=== PATIENT | female | born 1950 | race Caucasian/White ===

== ENCOUNTER → 2023-11-16 07:56 | Outpatient (REF) | payer OTHER, SELFPAY | LOC: RAD 07:56 | PROVIDERS: ATTENDING PHYSICIAN Nurse Practitioner Family | DX: R79.82 Elevated C-reactive protein (CRP) (principal); J18.9 Pneumonia, unspecified organism | CPT/HCPCS: 36415; 71046; 86140 ==

== ENCOUNTER → 2024-01-24 07:41 | Outpatient (REF) | payer OTHER, SELFPAY | LOC: RAD 07:41 | PROVIDERS: ATTENDING PHYSICIAN Internal Medicine | DX: R93.89 Abnormal findings on diagnostic imaging of other specified body structures (principal); J18.9 Pneumonia, unspecified organism | CPT/HCPCS: 71250 ==

== ENCOUNTER → 2024-02-29 10:49 | Outpatient (REF) | payer OTHER, SELFPAY | LOC: WDC 10:49 | PROVIDERS: ATTENDING PHYSICIAN Internal Medicine | DX: Z12.31 Encounter for screening mammogram for malignant neoplasm of breast (principal) | CPT/HCPCS: 77063; 77067 ==

== ENCOUNTER → 2024-06-12 07:42 | Outpatient (REF) | payer OTHER, SELFPAY ==
[2024-06-12 09:22] LABS: % Basophils 1.1 % (0-2); % Eosinophils 5.7 % (0-6); % Immature Granulocytes 0.3 % (0-0.5); % Lymphocytes 24.9 % (20.5-51.1); % Monocytes 8.8 % (1.7-9.3); % Neutrophils 59.2 % (42.2-75.2); Absolute Basophils 0.1 10^3/uL (0-0.2); Absolute Eosinophils 0.4 10^3/uL (0-0.7); Absolute Lymphocytes 1.5 10^3/uL (1.2-3.4); Absolute Monocytes 0.5 10^3/uL (0.1-0.6); Absolute Neutrophils 3.6 10^3/uL (1.4-6.5); Hematocrit 42.7 % (37.0-47.0); Hemoglobin 13.7 g/dL (12.0-16.0); Mean Corp Hgb Conc. 32.1 g/dL (33.0-37.0); Mean Corpuscular Hgb 28.1 pg (27.0-31.0); Mean Corpuscular Volume 87.7 fL (81.0-99.0); Mean Platelet Volume 10.7 fL (7.4-10.4); Nucleated Red Blood Cells % 0 %; Platelet Count 265 10^3/uL (130-400); Red Blood Cell Count 4.87 10^6/uL (4.20-5.40); Red Cell Dist. Width 12.7 % (11.5-14.5); White Blood Cell Count 6.1 10^3/uL (4.8-10.8)
[2024-06-12 11:13] LABS: ALT (SGPT) 17 U/L (0-35); AST (SGOT) 23 U/L (14-36); Albumin 4.4 g/dl (3.5-5.0); Alkaline Phosphatase 87 U/L (38-126); Blood Urea Nitrogen 23 mg/dl (7-17); Calcium 9.8 mg/dl (8.4-10.2); Carbon Dioxide 25 mmol/L (22-30); Chloride 101 mmol/L (98-107); Glucose 91 mg/dl (70-99); HDL Cholesterol 72 mg/dl; LDL Cholesterol, Calculated 99 mg/dl; Magnesium 2.1 mg/dl (1.6-2.3); Potassium 4.8 mmol/L (3.5-5.1); Sodium 139 mmol/L (135-145); Total Bilirubin 0.6 mg/dl (0.2-1.3); Total Cholesterol 187 mg/dl (50-199); Total Protein 6.6 g/dl (6.3-8.2); Triglyceride 80 mg/dl (10-149); Very Low Density Lipoprotein 16 mg/dl (0-30); eGFR > 60.00
== END ==
LOC: REG 07:42
PROVIDERS: ATTENDING PHYSICIAN Nurse Practitioner Primary Care
DX: I10 Essential (primary) hypertension (principal); E78.2 Mixed hyperlipidemia; M81.0 Age-related osteoporosis without current pathological fracture
CPT/HCPCS: 36415; 80053; 80061; 83735; 85025

== ENCOUNTER → 2024-06-22 08:21 | Outpatient (REF) | payer OTHER, SELFPAY | LOC: RAD 08:21 | PROVIDERS: ATTENDING PHYSICIAN Nurse Practitioner Primary Care | DX: M81.0 Age-related osteoporosis without current pathological fracture (principal) | CPT/HCPCS: 77080 ==

== ENCOUNTER → 2024-09-21 11:20 | Outpatient (REF) | payer OTHER, SELFPAY ==
[2024-09-21 13:53] LABS: % Basophils 0.7 % (0-2); % Eosinophils 1.9 % (0-6); % Immature Granulocytes 0.3 % (0-0.5); % Lymphocytes 18.1 % (20.5-51.1); % Monocytes 7.5 % (1.7-9.3); % Neutrophils 71.5 % (42.2-75.2); Absolute Basophils 0.1 10^3/uL (0-0.2); Absolute Eosinophils 0.2 10^3/uL (0-0.7); Absolute Lymphocytes 1.7 10^3/uL (1.2-3.4); Absolute Monocytes 0.7 10^3/uL (0.1-0.6); Absolute Neutrophils 6.5 10^3/uL (1.4-6.5); Hematocrit 40.3 % (37.0-47.0); Mean Corp Hgb Conc. 32.3 g/dL (33.0-37.0); Mean Corpuscular Hgb 28.6 pg (27.0-31.0); Mean Corpuscular Volume 88.8 fL (81.0-99.0); Mean Platelet Volume 11.1 fL (7.4-10.4); Nucleated Red Blood Cells % 0 %; Platelet Count 269 10^3/uL (130-400); Red Blood Cell Count 4.54 10^6/uL (4.20-5.40); Red Cell Dist. Width 13.1 % (11.5-14.5); White Blood Cell Count 9.1 10^3/uL (4.8-10.8)
[2024-09-21 15:52] LABS: Vitamin D, 25-OH*** 77.8 ng/mL (30-80)
[2024-09-21 15:56] LABS: ALT (SGPT) 18 U/L (0-35); AST (SGOT) 24 U/L (14-36); Albumin 4.4 g/dl (3.5-5.0); Alkaline Phosphatase 92 U/L (38-126); Blood Urea Nitrogen 17 mg/dl (7-17); Calcium 9.6 mg/dl (8.4-10.2); Carbon Dioxide 30 mmol/L (22-30); Chloride 98 mmol/L (98-107); Glucose 86 mg/dl (70-99); Potassium 4.6 mmol/L (3.5-5.1); Sodium 138 mmol/L (135-145); Total Bilirubin 0.4 mg/dl (0.2-1.3); Total Protein 6.9 g/dl (6.3-8.2); eGFR > 60.00
[2024-09-21 16:05] LABS: TSH 1.99 uIU/ml (0.47-4.68)
[2024-09-22 03:41] LABS: IgA 294 mg/dl (70-400)
[2024-09-22 14:58] LABS: tTG IgA Antibody 7.5 EU/ml (0-19); tTG IgG Antibody 13.9 EU/ml (0-19)
[2024-09-22 15:16] LABS: Intact PTH 37.7 pg/ml (13.6-85.8)
[2024-09-24 02:06] LABS: Endomysial IgA Antibody Titer <1:10 (<1:10)
== END ==
LOC: RAD 11:20
PROVIDERS: ATTENDING PHYSICIAN Physician Assistant; FAMILY PHYSICIAN Internal Medicine
DX: D80.0 Hereditary hypogammaglobulinemia (principal); E07.9 Disorder of thyroid, unspecified; E21.5 Disorder of parathyroid gland, unspecified; K90.0 Celiac disease; M81.8 Other osteoporosis without current pathological fracture; R29.890 Loss of height
CPT/HCPCS: 36415; 72072; 72100; 80053; 82306; 82784; 83516; 83970; 84100; 84155; 84165; 84443; 85025; 86231

== ENCOUNTER → 2024-09-28 11:07 | Outpatient (REF) | payer OTHER, SELFPAY ==
[2024-09-28 12:30] LABS: 24 Hour Urine Total Volume 2200 ml
[2024-09-28 12:47] LABS: 24 Hour Urine Calcium 101.2 mg/day; Urine Calcium 4.6 mg/dl
== END ==
LOC: REG 11:07
PROVIDERS: ATTENDING PHYSICIAN Physician Assistant; FAMILY PHYSICIAN Internal Medicine
DX: E80.0 Hereditary erythropoietic porphyria (principal); E07.9 Disorder of thyroid, unspecified; E21.5 Disorder of parathyroid gland, unspecified; K90.0 Celiac disease; M81.8 Other osteoporosis without current pathological fracture; R29.890 Loss of height; R82.994 Hypercalciuria
CPT/HCPCS: 81050; 82340; 82530

== ENCOUNTER 2024-11-03 10:38 | Emergency (ER) | payer OTHER, SELFPAY ==
[2024-11-03 10:40] VITALS: BP 172/88
[2024-11-03 10:57] LABS: % Basophils 0.8 % (0-2); % Eosinophils 0.9 % (0-6); % Immature Granulocytes 0.3 % (0-0.5); % Lymphocytes 22.6 % (20.5-51.1); % Monocytes 5.7 % (1.7-9.3); % Neutrophils 69.7 % (42.2-75.2); Absolute Basophils 0.1 10^3/uL (0-0.2); Absolute Eosinophils 0.1 10^3/uL (0-0.7); Absolute Lymphocytes 1.5 10^3/uL (1.2-3.4); Absolute Monocytes 0.4 10^3/uL (0.1-0.6); Absolute Neutrophils 4.5 10^3/uL (1.4-6.5); Hematocrit 44.5 % (37.0-47.0); Hemoglobin 14.2 g/dL (12.0-16.0); Mean Corp Hgb Conc. 31.9 g/dL (33.0-37.0); Mean Corpuscular Hgb 28.3 pg (27.0-31.0); Mean Corpuscular Volume 88.6 fL (81.0-99.0); Mean Platelet Volume 10.2 fL (7.4-10.4); Nucleated Red Blood Cells % 0 %; Platelet Count 273 10^3/uL (130-400); Red Blood Cell Count 5.02 10^6/uL (4.20-5.40); Red Cell Dist. Width 13.3 % (11.5-14.5); White Blood Cell Count 6.5 10^3/uL (4.8-10.8)
[2024-11-03 12:33] LABS: ALT (SGPT) 21 U/L (0-35); AST (SGOT) 26 U/L (14-36); Albumin 4.8 g/dl (3.5-5.0); Alkaline Phosphatase 116 U/L (38-126); Blood Urea Nitrogen 18 mg/dl (7-17); Calcium 9.6 mg/dl (8.4-10.2); Carbon Dioxide 26 mmol/L (22-30); Chloride 100 mmol/L (98-107); Glucose 113 mg/dl (70-99); Potassium 4.3 mmol/L (3.5-5.1); Sodium 137 mmol/L (135-145); Total Bilirubin 0.9 mg/dl (0.2-1.3); Total Protein 7.2 g/dl (6.3-8.2); eGFR > 60.00
--- NOTE | 2024-11-03 13:12 | ED.GENMED ---
History of Present Illness
General
Chief Complaint: Headache
Source: patient
Exam Limitations: none
Time Seen by Provider: 11/03/24 12:55
History of Present Illness
History of Present Illness:
73yoF with a history of hypertension and osteoporosis presenting for evaluation of headaches. Patient received a shot of Evenity on 10/16/24 for the first time for her osteoporosis. She was doing well initially but about 5 days ago, she had an
episode of dizziness while standing doing dishes. Shortly afterwards, she started to experience a sharp pain in her right temporal region which has been intermittent since then. This pain comes and goes and can last a few hours at a time. The pain
feels sharp like an ice pick. Symptoms seem to be worse in the afternoon and evenings and are always located in the right temporal region. She has periods where she is completely pain free and she was able to play pickleball yesterday without any
issue. She currently has a 5/10 dull headache. She has some fogginess in her vision in the right eye. She denies any associated vomiting, double vision, weakness, paresthesias. She spoke with her physical therapy assistant instructor who told her that headaches are a
known side effect of Evenity.
Past History
Past History
ED Past Medical History: HTN and Other (Stress incontinence)
ED Past Surgical History: Gynecological (Hysterectomy), Orthopedic and Urological (Cystocele/rectocele repair with hysterectomy, urethral sling November 2021)
Social History
Tobacco: Non-smoker
Alcohol: Occasional
Drug: None
Living: with family
Employment: Retired
Family History
Family History: Other (Noncontributory)
Phy Exam
General Physical Exam
General Presentation: well appearing and no apparent distress
General age: appears stated age
General Skin: warm and dry
General Habitus: normal
General Mental: alert
ENT Exam
ENT Exam: other (Mild tenderness in R temporal region)
Eye Exam
Eye Exam: PERRL, EOMI, conjunctiva normal and other (R eye pressure 15mmHg, L eye pressure 13-14mmHg)
Right 20/: 40
Left 20/: 40
Pulmonary Exam
Pulmonary Exam: no respiratory distress
Neurological Exam
Neurological Exam: alert, no motor deficits and normal gait
Divina Coma Scale
Eye Opening: Spontaneous
Verbal Response: Oriented
Motor Response: Obeys Commands
GCS Total Score: 15
Skin Exam
Skin Exam: normal color and warm/dry
Psychiatric Exam
Psychiatric Exam: normal mood/affect
Course
Orders/Labs/Results
Orders:
Orders
11/03/24 10:45
CT Head W/o Iv Contrast Urgent
Comment:
Reason For Exam: headache x 5 days
11/03/24 10:49
C-Reactive Protein Urgent
Comment: ADD ON
Complete Blood Count/With Diff Urgent
Comprehensive Metabolic Panel Urgent
Erythrocyte Sed Rate Urgent
Comment: ADD ON
11/03/24 13:10
Add On- LAB Stat
Tests Added?: ESR, CRP
11/03/24 13:14
Visual Acuity- Treatment ONCE
Abnormal Lab Results
11/03/24
10:49
MCHC 31.9 L g/dL
(33.0-37.0)
BUN 18 H mg/dl
(7-17)
Glucose 113 H mg/dl
(70-99)
11/03/24 10:49
11/03/24 10:49
Vital Signs
Initial and Last Documented VS:
Initial Vital Signs
Temp Pulse Resp BP Pulse Ox
97.8 F 95 16 172/88 98
11/03/24 10:40 11/03/24 10:40 11/03/24 10:40 11/03/24 10:40 11/03/24 10:40
Last Documented Vital Signs
Temp Pulse Resp BP Pulse Ox
98.9 F 74 18 124/75 98
11/03/24 16:32 11/03/24 16:32 11/03/24 16:32 11/03/24 16:32 11/03/24 16:32
MDM/Problems Addressed
Differential Diagnosis Includes:
73yoF here with intermittent sharp headaches in R temporal region x 5 days. Received Evenity shot recently for the first time. She is hypertensive in triage with otherwise normal vital signs. She is well appearing in no distress. Mild R temporal
tenderness on exam. Pupillary exam is normal and eye pressures WNL. Differential diagnosis includes but is not limited to: medication side effect, cluster headache, temporal arteritis, TMJ, trigeminal neuralgia, early shingles
Initial ED plan: Basic labs and CT head obtained in triage. CT is negative for acute findings. Will add on ESR/CRP.
*Critical Care Note
Total Time (30-74mins, 75-104mins- exclusive of procedures): Not Applicable
Update Note
Update Note:
Both ESR and CRP are normal making temporal arteritis very unlikely. No indication for hospitalization at this time. Unclear etiology of symptoms. Possibly a medication side effect? She was also diagnosed with TMJ a few months ago. Will trial course
of prednisone. She was advised to f/u with PCP and neurology. Strict ED return precautions discussed. Patient in agreement with plan and was discharged in stable condition.
ED Attending Note
-
Portions of this chart may have been created with voice recognition software.� Occasional wrong word or��sound alike� substitutions may have occurred due to the inherent limitations of voice recognition software.
Discharge Plan
Departure
Patient Disposition: Home (Routine Discharge)
Date of Disposition: 11/03/24
Time of Disposition: 16:06
Patient with high blood pressure during this ER visit?: Yes
Discharge Problem:
Intermittent headache
Instructions: Headache, Adult (DC)
Prescriptions:
New
prednisone 20 mg tablet
40 mg PO DAILY 5 Days Qty: 10 0RF
No Action
amlodipine 2.5 MG tablet
2.5 mg PO DAILY
ascorbic acid (vitamin C) [Vitamin C] 500 MG tablet
500 mg PO DAILY
Centrum 1 EACH tablet
1 tab PO DAILY
Calcium 600-D3 20Mcg(800 Unit)
1 tab PO DAILY
Metamucil:
1 tsp PO DAILY
Patient Comments:
patient stopped pre-op voluntarily
Referrals:
Francisco Scales MD [Active] -
Ori Vazquez MD [Family Provider] -
Activity Restrictions/Additional Instructions:
Take prednisone as prescribed. Continue taking Tylenol as needed.
Please follow-up with your family doctor on Wednesday as well as neurology. Return to the ER with any new or worsening symptoms.
Interventions
Interventions:
*Risk Screen - Suicide Last Done: 11/03/24 10:40
*General Assessment Last Done: 11/03/24 10:40
*Neglect/Abuse Screening Last Done: 11/03/24 10:40
ED- Fall Risk Assessment Last Done: 11/03/24 11:31
*ED COVID-19 Vaccine History Last Done: 11/03/24 11:31
*Nursing Disposition Last Done: 11/03/24 16:32
ED- Neurological Assessment Last Done: 11/03/24 11:31
Discharge Date and Time
Discharge Date/Time: 11/03/24 16:40
Print Language: BULGARIAN
[2024-11-03 15:52] LABS: Erythrocyte Sed Rate 7 mm/hour (0-20)
[2024-11-03 16:02] LABS: C-Reactive Protein < 5.00 mg/L (0.0-10.00)
[2024-11-03 16:32] VITALS: BP 124/75
== END 2024-11-03 16:40 | disposition home or self-care (01) ==
LOC: EMR 10:38
PROVIDERS: Emergency Medicine; EMERGENCY PHYSICIAN Emergency Medicine
DX: R51.9 Headache, unspecified (principal); I10 Essential (primary) hypertension; M81.0 Age-related osteoporosis without current pathological fracture; Z90.710 Acquired absence of both cervix and uterus; N39.3 Stress incontinence (female) (male)
CPT/HCPCS: 99284; 70450; 80053; 85025; 85652; 86140

== ENCOUNTER → 2024-11-08 11:33 | Outpatient (REF) | payer OTHER, SELFPAY ==
[2024-11-08 13:29] LABS: Erythrocyte Sed Rate 8 mm/hour (0-20)
== END ==
LOC: REG 11:33
PROVIDERS: ATTENDING PHYSICIAN Internal Medicine; FAMILY PHYSICIAN Internal Medicine
DX: R51.9 Headache, unspecified (principal)
CPT/HCPCS: 36415; 85652; 86140

== ENCOUNTER → 2024-12-13 10:00 | Outpatient (REF) | payer SELFPAY | LOC: HWRAD 10:00 | PROVIDERS: ATTENDING PHYSICIAN Nurse Practitioner Primary Care | DX: E78.2 Mixed hyperlipidemia (principal); Z82.49 Family history of ischemic heart disease and other diseases of the circulatory system | CPT/HCPCS: 75571 ==

== ENCOUNTER → 2024-12-13 10:07 | Outpatient (REF) | payer OTHER, SELFPAY | LOC: HWCARD 10:07 | PROVIDERS: ATTENDING PHYSICIAN Nurse Practitioner Primary Care | DX: I45.10 Unspecified right bundle-branch block (principal); I44.4 Left anterior fascicular block | CPT/HCPCS: 93005 ==

== ENCOUNTER → 2024-12-14 10:50 | Outpatient (REF) | payer OTHER, SELFPAY | LOC: HWRCS 10:50 | PROVIDERS: ATTENDING PHYSICIAN Nurse Practitioner Primary Care | DX: I10 Essential (primary) hypertension (principal); I45.10 Unspecified right bundle-branch block; I44.4 Left anterior fascicular block | CPT/HCPCS: 93306 ==

== ENCOUNTER → 2025-03-05 10:50 | Outpatient (REF) | payer OTHER, SELFPAY | LOC: WDC 10:50 | PROVIDERS: ATTENDING PHYSICIAN Nurse Practitioner Primary Care | DX: Z12.31 Encounter for screening mammogram for malignant neoplasm of breast (principal) | CPT/HCPCS: 77063; 77067 ==

== ENCOUNTER → 2025-03-26 13:10 | Outpatient (REF) | payer OTHER, SELFPAY ==
[2025-03-26 14:49] LABS: ALT (SGPT) 25 U/L (0-35); AST (SGOT) 24 U/L (14-36); Albumin 4.3 g/dl (3.5-5.0); Alkaline Phosphatase 67 U/L (38-126); Blood Urea Nitrogen 24 mg/dl (7-17); Calcium 9.8 mg/dl (8.4-10.2); Carbon Dioxide 33 mmol/L (22-30); Chloride 103 mmol/L (98-107); Glucose 88 mg/dl (70-99); Potassium 4.4 mmol/L (3.5-5.1); Sodium 138 mmol/L (135-145); Total Protein 6.7 g/dl (6.3-8.2); eGFR > 60.00
[2025-03-26 15:05] LABS: Vitamin D, 25-OH*** 72.2 ng/mL (30-80)
== END ==
LOC: REG 13:10
PROVIDERS: ATTENDING PHYSICIAN Internal Medicine; FAMILY PHYSICIAN Nurse Practitioner Primary Care
DX: E56.9 Vitamin deficiency, unspecified (principal); M81.8 Other osteoporosis without current pathological fracture; Z51.81 Encounter for therapeutic drug level monitoring
CPT/HCPCS: 36415; 80053; 82306

== ENCOUNTER → 2025-04-16 09:25 | Outpatient (REF) | payer OTHER, SELFPAY | LOC: HWRAD 09:25 | PROVIDERS: ATTENDING PHYSICIAN Physician Assistant; FAMILY PHYSICIAN Nurse Practitioner Primary Care | DX: J32.0 Chronic maxillary sinusitis (principal) | CPT/HCPCS: 70486 ==

== ENCOUNTER 2025-05-28 06:49 | Day surgery (SDC) | payer OTHER, SELFPAY ==
[2025-05-23 09:37] LABS: Blood Urea Nitrogen 24 mg/dl (7-17); Calcium 9.5 mg/dl (8.4-10.2); Carbon Dioxide 29 mmol/L (22-30); Chloride 105 mmol/L (98-107); Glucose 85 mg/dl (70-99); Potassium 4.5 mmol/L (3.5-5.1); Sodium 139 mmol/L (135-145); eGFR > 60.00
[2025-05-23 09:49] LABS: Hematocrit 42.2 % (37.0-47.0); Hemoglobin 13.3 g/dL (12.0-16.0); Mean Corp Hgb Conc. 31.5 g/dL (33.0-37.0); Mean Corpuscular Volume 90.8 fL (81.0-99.0); Platelet Count 223 10^3/uL (130-400); Red Cell Dist. Width 13.1 % (11.5-14.5)
[2025-05-23 14:16] VITALS: BMI 18.9
[2025-05-28] VITALS (10 sets, daily range): BP systolic 104–150; BP diastolic 50–97; BMI 18.9
[2025-05-28] MEDS: NORMOSOL-R/PLASMALYTE-A 1000 IV (09:48)
[2025-05-28] MEDS: HEPARIN 5000 UNITS SC (09:51)
== END 2025-05-28 15:25 | disposition home or self-care (01) ==
LOC: SDS 06:49
PROVIDERS: ATTENDING PHYSICIAN Obstetrics & Gynecology; FAMILY PHYSICIAN Nurse Practitioner Primary Care
DX: N81.10 Cystocele, unspecified (principal); N95.2 Postmenopausal atrophic vaginitis; R35.1 Nocturia; R39.15 Urgency of urination
CPT/HCPCS: 57282; 57260; 36415; 80048; 85027; 86850; 86900; 86901; J1580

== ENCOUNTER → 2025-07-06 07:00 | Outpatient (REF) | payer OTHER, SELFPAY ==
[2025-07-06 08:46] LABS: ALT (SGPT) 26 U/L (0-35); AST (SGOT) 25 U/L (14-36); HDL Cholesterol 80 mg/dl; LDL Cholesterol, Calculated 122 mg/dl; Very Low Density Lipoprotein 18 mg/dl (0-30)
== END ==
LOC: REG 07:00
PROVIDERS: ATTENDING PHYSICIAN Nurse Practitioner Acute Care; FAMILY PHYSICIAN Nurse Practitioner Primary Care
DX: R93.1 Abnormal findings on diagnostic imaging of heart and coronary circulation (principal); Z00.00 Encounter for general adult medical examination without abnormal findings
CPT/HCPCS: 36415; 80061; 84450; 84460

== ENCOUNTER → 2025-09-18 13:05 | Outpatient (REF) | payer OTHER, SELFPAY ==
[2025-09-18 14:30] LABS: Blood Urea Nitrogen 23 mg/dl (7-17); Calcium 9.3 mg/dl (8.4-10.2); Carbon Dioxide 28 mmol/L (22-30); Chloride 100 mmol/L (98-107); Glucose 100 mg/dl (70-99); Potassium 4.3 mmol/L (3.5-5.1); Sodium 135 mmol/L (135-145); eGFR > 60.00
[2025-09-18 14:42] LABS: Urine Character Clear (Clear)
[2025-09-18 15:34] LABS: Urine Red Blood Cell 0-2 /HPF (0-2); Urine Urothelial Cell 0-2 /LPF (FEW)
== END ==
LOC: REG 13:05
PROVIDERS: ATTENDING PHYSICIAN Obstetrics & Gynecology; FAMILY PHYSICIAN Nurse Practitioner Primary Care; OTHER PHYSICIAN Physician Assistant
DX: R31.0 Gross hematuria (principal); Z01.818 Encounter for other preprocedural examination
CPT/HCPCS: 36415; 80048; 81003; 81015